=== PATIENT | male | born 1980 | race Caucasian/White ===

== ENCOUNTER 2022-10-06 11:31 | Inpatient (IN) | payer OTHER ==
[2022-10-06 12:01] VITALS: BMI 27.7
[2022-10-06] MEDS ORDERED: BENZOCAINE/MENTHOL (CHLORASEPTIC ) LOZENGE MM PRN (12:31)
[2022-10-06] MEDS ORDERED: POLYETHYLENE GLYCOL (HEALTHYLAX) 3350 17 GM PACKET PO PRN (12:31)
[2022-10-06] MEDS ORDERED: P-EPHED 60MG/TRIPROLIDI 2.5MG TABLET PO PRN (12:31)
[2022-10-06] MEDS ORDERED: BENZONATATE 200 MG CAPSULE PO PRN (12:31)
[2022-10-06] MEDS ORDERED: COLLOIDAL OATMEAL 1 BAR EACH TP PRN (12:31)
[2022-10-06] MEDS ORDERED: LOPERAMIDE HCL 2 MG CAPSULE PO PRN (12:31)
[2022-10-06] MEDS ORDERED: AMMONIUM LACTATE 12% LOTION 225 GM BOTTLE TP PRN (12:31)
[2022-10-06] MEDS ORDERED: MAG HYDROX/AL HYDROX/SIMETH 30 ML UNIT-DOSE CUP PO PRN (12:31)
[2022-10-06] MEDS ORDERED: NALOXONE HCL 0.4 MG/ML VIAL IM PRN (12:31)
[2022-10-06] MEDS ORDERED: IBUPROFEN 400 MG TABLET (FP) PO PRN (12:31)
[2022-10-06] MEDS ORDERED: TUBERCULIN PPD 5 TU/0.1ML SYRINGE (IN PATIENT USE ONLY) ID ONE (12:31)
[2022-10-06] MEDS ORDERED: IBUPROFEN 600 MG TABLET (FP) PO PRN (12:31)
[2022-10-06] MEDS ORDERED: guaiFENesin 600 MG TABLET.ER (FP) PO PRN (12:31)
[2022-10-06] MEDS ORDERED: NALOXONE HCL (KLOXXADO) 8 MG SPRAY NS PRN (12:31)
[2022-10-06] MEDS ORDERED: hydrOXYzine PAMOATE 25 MG CAPSULE (FP) PO PRN (12:31)
[2022-10-06] MEDS ORDERED: NICOTINE 14 MG/24 HOURS TOPICAL PATCH TD ONE (13:16)
[2022-10-06] MEDS: NICOTINE 14 MG/24 HOURS TOPICAL PATCH TD SCH (13:19)
[2022-10-06] MEDS: THIAMINE HCL 100 MG TABLET (FP) PO SCH (21:55)
[2022-10-06] MEDS: MELATONIN 5 MG TABLETS PO SCH (21:56)
[2022-10-06] MEDS: SULFAMETHOXAZOLE/TRIMETHOPRIM 800MG/160MG D.S. TABLET PO SCH (21:56)
[2022-10-07] MEDS ORDERED: methaDONE HCL 10 MG TABLET PO SCH (06:15)
[2022-10-07] MEDS: methaDONE 40 MG, methaDONE 20 MG PO SCH (06:18)
[2022-10-07] MEDS: SERTRALINE HCL 50 MG TABLET (FP) PO SCH (10:26)
[2022-10-07] MEDS: NICOTINE 14 MG/24 HOURS TOPICAL PATCH TD SCH (10:26)
[2022-10-07] MEDS: GABAPENTIN 100 MG CAPSULE PO SCH ×2 (10:26→21:33)
[2022-10-07] MEDS: PRENATAL VITAMINS W/ FOLIC ACID TABLET (FP) PO SCH (10:27)
[2022-10-07] MEDS: SULFAMETHOXAZOLE/TRIMETHOPRIM 800MG/160MG D.S. TABLET PO SCH ×2 (10:27→21:33)
[2022-10-07 11:23] LABS: PH,URINE 7.5 (5.0-8.0); URINE APPEARANCE CLEAR; URINE BILIRUBIN NEGATIVE (NEGATIVE); URINE COLOR YELLOW; URINE GLUCOSE (UA) NEGATIVE (NEGATIVE); URINE KETONE NEGATIVE (NEGATIVE); URINE LEUK ESTERASE NEGATIVE (NEGATIVE); URINE NITRITE NEGATIVE (NEGATIVE); URINE PROTEIN NEGATIVE (NEGATIVE); URINE UROBILINOGEN 0.2 mg/dL (0.2-1.0)
[2022-10-07 11:35] LABS: HEMATOCRIT 35.8 % (35.4-49); HEMOGLOBIN 11.9 GM/dL (11.7-16.9); MCH 27.2 pg (25.7-33.7); MCHC 33.4 g/dl (32.0-35.9); MEAN CELL VOLUME 81.4 fl (80-96); MEAN PLT VOLUME 7.7 fl (7.5-11.1); PLATELET COUNT 232 10^3/uL (134-434); RDW 14.9 % (11.9-15.9)
[2022-10-07 12:36] LABS: POTASSIUM 4.6 mmol/L (3.5-5.1)
[2022-10-07 12:51] LABS: ALBUMIN 3.4 g/dl (3.4-5.0); BLOOD UREA NITROGEN 6.9 mg/dL (7-18)
[2022-10-07 12:53] LABS: CREATININE 0.9 mg/dL (0.55-1.3)
[2022-10-07 12:54] LABS: BILIRUBIN,TOTAL 0.2 mg/dL (0.2-1); TOT PROT 6.6 g/dl (6.4-8.2)
[2022-10-07] MEDS: THIAMINE HCL 100 MG TABLET (FP) PO SCH (21:33)
[2022-10-07] MEDS: MELATONIN 5 MG TABLETS PO SCH (21:33)
[2022-10-07] MEDS: QUEtiapine FUMARATE 50 MG TABLET PO SCH (21:34)
[2022-10-08] MEDS: methaDONE 40 MG, methaDONE 20 MG PO SCH (06:18)
[2022-10-08] MEDS: PRENATAL VITAMINS W/ FOLIC ACID TABLET (FP) PO SCH (09:51)
[2022-10-08] MEDS: GABAPENTIN 100 MG CAPSULE PO SCH (09:51)
[2022-10-08] MEDS: NICOTINE 14 MG/24 HOURS TOPICAL PATCH TD SCH (09:51)
[2022-10-08] MEDS: SERTRALINE HCL 50 MG TABLET (FP) PO SCH (09:51)
[2022-10-08] MEDS: SULFAMETHOXAZOLE/TRIMETHOPRIM 800MG/160MG D.S. TABLET PO SCH ×2 (09:51→21:35)
[2022-10-08] MEDS: QUEtiapine FUMARATE 50 MG TABLET PO SCH (21:35)
[2022-10-08] MEDS: THIAMINE HCL 100 MG TABLET (FP) PO SCH (21:35)
[2022-10-08] MEDS: MELATONIN 5 MG TABLETS PO SCH (21:35)
[2022-10-08] MEDS: GABAPENTIN 300 MG CAPSULE PO SCH (21:36)
[2022-10-09] MEDS: methaDONE 40 MG, methaDONE 20 MG PO SCH (06:41)
[2022-10-09] MEDS: PRENATAL VITAMINS W/ FOLIC ACID TABLET (FP) PO SCH (09:58)
[2022-10-09] MEDS: NICOTINE 14 MG/24 HOURS TOPICAL PATCH TD SCH (09:58)
[2022-10-09] MEDS: SULFAMETHOXAZOLE/TRIMETHOPRIM 800MG/160MG D.S. TABLET PO SCH ×2 (09:58→21:20)
[2022-10-09] MEDS: SERTRALINE HCL 50 MG TABLET (FP) PO SCH (09:58)
[2022-10-09] MEDS: GABAPENTIN 300 MG CAPSULE PO SCH ×2 (09:58→21:20)
[2022-10-09] MEDS: NICOTINE POLACRILEX 2 MG GUM BUC PRN (10:00)
[2022-10-09] MEDS: MELATONIN 5 MG TABLETS PO SCH (21:20)
[2022-10-09] MEDS: QUEtiapine FUMARATE 50 MG TABLET PO SCH (21:20)
[2022-10-09] MEDS: THIAMINE HCL 100 MG TABLET (FP) PO SCH (21:20)
[2022-10-10] MEDS: methaDONE 40 MG, methaDONE 20 MG PO SCH (06:29)
[2022-10-10] MEDS: NICOTINE 14 MG/24 HOURS TOPICAL PATCH TD SCH (10:03)
[2022-10-10] MEDS: GABAPENTIN 300 MG CAPSULE PO SCH ×2 (10:03→21:13)
[2022-10-10] MEDS: PRENATAL VITAMINS W/ FOLIC ACID TABLET (FP) PO SCH (10:03)
[2022-10-10] MEDS: SULFAMETHOXAZOLE/TRIMETHOPRIM 800MG/160MG D.S. TABLET PO SCH ×2 (10:03→21:13)
[2022-10-10] MEDS: SERTRALINE HCL 50 MG TABLET (FP) PO SCH (10:04)
[2022-10-10] MEDS: QUEtiapine FUMARATE 50 MG TABLET PO SCH (21:13)
[2022-10-10] MEDS: THIAMINE HCL 100 MG TABLET (FP) PO SCH (21:13)
[2022-10-10] MEDS: MELATONIN 5 MG TABLETS PO SCH (21:13)
[2022-10-11] MEDS: methaDONE 40 MG, methaDONE 20 MG PO SCH (06:19)
[2022-10-11] MEDS: SULFAMETHOXAZOLE/TRIMETHOPRIM 800MG/160MG D.S. TABLET PO SCH ×2 (09:30→21:23)
[2022-10-11] MEDS: PRENATAL VITAMINS W/ FOLIC ACID TABLET (FP) PO SCH (09:31)
[2022-10-11] MEDS: GABAPENTIN 300 MG CAPSULE PO SCH ×2 (09:31→21:23)
[2022-10-11] MEDS: NICOTINE 14 MG/24 HOURS TOPICAL PATCH TD SCH (09:31)
[2022-10-11] MEDS: SERTRALINE HCL 50 MG TABLET (FP) PO SCH (09:31)
[2022-10-11] MEDS: NICOTINE POLACRILEX 2 MG GUM BUC PRN ×2 (09:32→21:24)
[2022-10-11] MEDS ORDERED: QUEtiapine FUMARATE 25 MG TABLET ONE (18:26)
[2022-10-11] MEDS: MELATONIN 5 MG TABLETS PO SCH (21:23)
[2022-10-11] MEDS: THIAMINE HCL 100 MG TABLET (FP) PO SCH (21:23)
[2022-10-11] MEDS: QUEtiapine FUMARATE 50 MG TABLET PO SCH (21:24)
[2022-10-12] MEDS: methaDONE 40 MG, methaDONE 20 MG PO SCH (06:36)
[2022-10-12] MEDS: SULFAMETHOXAZOLE/TRIMETHOPRIM 800MG/160MG D.S. TABLET PO SCH ×2 (10:20→21:28)
[2022-10-12] MEDS: NICOTINE 14 MG/24 HOURS TOPICAL PATCH TD SCH (10:20)
[2022-10-12] MEDS: PRENATAL VITAMINS W/ FOLIC ACID TABLET (FP) PO SCH (10:20)
[2022-10-12] MEDS: SERTRALINE HCL 50 MG TABLET (FP) PO SCH (10:20)
[2022-10-12] MEDS: GABAPENTIN 300 MG CAPSULE PO SCH ×2 (10:20→21:28)
[2022-10-12] MEDS: THIAMINE HCL 100 MG TABLET (FP) PO SCH (21:28)
[2022-10-12] MEDS: MELATONIN 5 MG TABLETS PO SCH (21:28)
[2022-10-12] MEDS: QUEtiapine FUMARATE 50 MG TABLET PO SCH (21:28)
[2022-10-13] MEDS: methaDONE 40 MG, methaDONE 20 MG PO SCH (06:14)
[2022-10-13] MEDS: GABAPENTIN 300 MG CAPSULE PO SCH ×2 (09:36→21:44)
[2022-10-13] MEDS: SULFAMETHOXAZOLE/TRIMETHOPRIM 800MG/160MG D.S. TABLET PO SCH (09:36)
[2022-10-13] MEDS: PRENATAL VITAMINS W/ FOLIC ACID TABLET (FP) PO SCH (09:36)
[2022-10-13] MEDS: SERTRALINE HCL 50 MG TABLET (FP) PO SCH (09:36)
[2022-10-13] MEDS: NICOTINE 14 MG/24 HOURS TOPICAL PATCH TD SCH (09:36)
[2022-10-13] MEDS: MAGNESIUM HYDROX 2400MG/30ML ORAL SUSPENSION 30 ML CUP PO PRN (09:38)
[2022-10-13] MEDS: ACETAMINOPHEN 325 MG TABLET (FP) PO PRN (19:52)
[2022-10-13] MEDS: THIAMINE HCL 100 MG TABLET (FP) PO SCH (21:44)
[2022-10-13] MEDS: MELATONIN 5 MG TABLETS PO SCH (21:44)
[2022-10-13] MEDS: QUEtiapine FUMARATE 50 MG TABLET PO SCH (21:44)
[2022-10-14] MEDS: methaDONE 40 MG, methaDONE 20 MG PO SCH (06:32)
[2022-10-14] MEDS ORDERED: methaDONE HCL 10 MG TABLET PO SCH (10:00)
[2022-10-14] MEDS: GABAPENTIN 300 MG CAPSULE PO SCH ×2 (10:09→21:23)
[2022-10-14] MEDS: PRENATAL VITAMINS W/ FOLIC ACID TABLET (FP) PO SCH (10:09)
[2022-10-14] MEDS: SERTRALINE HCL 50 MG TABLET (FP) PO SCH (10:09)
[2022-10-14] MEDS: NICOTINE 14 MG/24 HOURS TOPICAL PATCH TD SCH (10:09)
[2022-10-14] MEDS: NICOTINE POLACRILEX 2 MG GUM BUC PRN ×2 (10:11→21:24)
[2022-10-14] MEDS: MELATONIN 5 MG TABLETS PO SCH (21:22)
[2022-10-14] MEDS: THIAMINE HCL 100 MG TABLET (FP) PO SCH (21:22)
[2022-10-14] MEDS: QUEtiapine FUMARATE 100 MG TABLET (FP) PO SCH (21:24)
[2022-10-15] MEDS ORDERED: methaDONE HCL 10 MG TABLET PO SCH (06:00)
[2022-10-15] MEDS: methaDONE 40 MG, methaDONE 20 MG PO SCH (06:24)
[2022-10-15] MEDS: GABAPENTIN 300 MG CAPSULE PO SCH ×2 (09:37→21:25)
[2022-10-15] MEDS: NICOTINE 14 MG/24 HOURS TOPICAL PATCH TD SCH (09:38)
[2022-10-15] MEDS: PRENATAL VITAMINS W/ FOLIC ACID TABLET (FP) PO SCH (09:38)
[2022-10-15] MEDS: SERTRALINE HCL 50 MG TABLET (FP) PO SCH (09:38)
[2022-10-15] MEDS: NICOTINE POLACRILEX 2 MG GUM BUC PRN (21:25)
[2022-10-15] MEDS: THIAMINE HCL 100 MG TABLET (FP) PO SCH (21:25)
[2022-10-15] MEDS: QUEtiapine FUMARATE 100 MG TABLET (FP) PO SCH (21:25)
[2022-10-15] MEDS: MELATONIN 5 MG TABLETS PO SCH (21:25)
[2022-10-16] MEDS: methaDONE 40 MG, methaDONE 20 MG PO SCH (06:39)
[2022-10-16] MEDS: PRENATAL VITAMINS W/ FOLIC ACID TABLET (FP) PO SCH (10:09)
[2022-10-16] MEDS: SERTRALINE HCL 50 MG TABLET (FP) PO SCH (10:09)
[2022-10-16] MEDS: NICOTINE 14 MG/24 HOURS TOPICAL PATCH TD SCH (10:09)
[2022-10-16] MEDS: GABAPENTIN 300 MG CAPSULE PO SCH ×2 (10:09→21:26)
[2022-10-16] MEDS: NICOTINE POLACRILEX 2 MG GUM BUC PRN (10:11)
[2022-10-16] MEDS: QUEtiapine FUMARATE 100 MG TABLET (FP) PO SCH (21:26)
[2022-10-16] MEDS: MELATONIN 5 MG TABLETS PO SCH (21:26)
[2022-10-16] MEDS: THIAMINE HCL 100 MG TABLET (FP) PO SCH (21:26)
[2022-10-16] MEDS: ACETAMINOPHEN 325 MG TABLET (FP) PO PRN (21:27)
[2022-10-17] MEDS: methaDONE 40 MG, methaDONE 20 MG PO SCH (06:30)
[2022-10-17] MEDS: GABAPENTIN 300 MG CAPSULE PO SCH ×2 (09:32→21:30)
[2022-10-17] MEDS: SERTRALINE HCL 50 MG TABLET (FP) PO SCH (09:32)
[2022-10-17] MEDS: NICOTINE 14 MG/24 HOURS TOPICAL PATCH TD SCH (09:32)
[2022-10-17] MEDS: PRENATAL VITAMINS W/ FOLIC ACID TABLET (FP) PO SCH (09:32)
[2022-10-17] MEDS: NICOTINE POLACRILEX 2 MG GUM BUC PRN ×3 (09:33→21:31)
[2022-10-17] MEDS: QUEtiapine FUMARATE 100 MG TABLET (FP) PO SCH (21:30)
[2022-10-17] MEDS: THIAMINE HCL 100 MG TABLET (FP) PO SCH (21:30)
[2022-10-17] MEDS: MELATONIN 5 MG TABLETS PO SCH (21:30)
[2022-10-18] MEDS: methaDONE 40 MG, methaDONE 20 MG PO SCH (06:21)
[2022-10-18] MEDS: NICOTINE POLACRILEX 2 MG GUM BUC PRN ×2 (08:31→21:39)
[2022-10-18] MEDS: PRENATAL VITAMINS W/ FOLIC ACID TABLET (FP) PO SCH (10:09)
[2022-10-18] MEDS: GABAPENTIN 300 MG CAPSULE PO SCH ×2 (10:09→21:37)
[2022-10-18] MEDS: SERTRALINE HCL 50 MG TABLET (FP) PO SCH (10:09)
[2022-10-18] MEDS: NICOTINE 14 MG/24 HOURS TOPICAL PATCH TD SCH (10:09)
[2022-10-18] MEDS: QUEtiapine FUMARATE 100 MG TABLET (FP) PO SCH (21:37)
[2022-10-18] MEDS: MELATONIN 5 MG TABLETS PO SCH (21:37)
[2022-10-18] MEDS: THIAMINE HCL 100 MG TABLET (FP) PO SCH (21:37)
[2022-10-19] MEDS: methaDONE 40 MG, methaDONE 20 MG PO SCH (06:27)
[2022-10-19] MEDS: GABAPENTIN 300 MG CAPSULE PO SCH ×2 (09:02→21:22)
[2022-10-19] MEDS: SERTRALINE HCL 50 MG TABLET (FP) PO SCH (09:02)
[2022-10-19] MEDS: PRENATAL VITAMINS W/ FOLIC ACID TABLET (FP) PO SCH (09:02)
[2022-10-19] MEDS: NICOTINE 14 MG/24 HOURS TOPICAL PATCH TD SCH (09:02)
[2022-10-19] MEDS: NICOTINE POLACRILEX 2 MG GUM BUC PRN ×2 (09:03→21:23)
[2022-10-19] MEDS: MELATONIN 5 MG TABLETS PO SCH (21:22)
[2022-10-19] MEDS: QUEtiapine FUMARATE 100 MG TABLET (FP) PO SCH (21:22)
[2022-10-19] MEDS: THIAMINE HCL 100 MG TABLET (FP) PO SCH (21:22)
[2022-10-20] MEDS: methaDONE 40 MG, methaDONE 20 MG PO SCH (06:15)
[2022-10-20] MEDS: PRENATAL VITAMINS W/ FOLIC ACID TABLET (FP) PO SCH (10:18)
[2022-10-20] MEDS: NICOTINE 14 MG/24 HOURS TOPICAL PATCH TD SCH (10:18)
[2022-10-20] MEDS: GABAPENTIN 300 MG CAPSULE PO SCH ×2 (10:18→21:27)
[2022-10-20] MEDS: SERTRALINE HCL 50 MG TABLET (FP) PO SCH (10:18)
[2022-10-20] MEDS: MELATONIN 5 MG TABLETS PO SCH (21:26)
[2022-10-20] MEDS: NICOTINE POLACRILEX 2 MG GUM BUC PRN (21:27)
[2022-10-20] MEDS: THIAMINE HCL 100 MG TABLET (FP) PO SCH (21:27)
[2022-10-20] MEDS: QUEtiapine FUMARATE 100 MG TABLET (FP) PO SCH (21:27)
[2022-10-21] MEDS: methaDONE 40 MG, methaDONE 20 MG PO SCH (06:23)
[2022-10-21] MEDS: MAGNESIUM HYDROX 2400MG/30ML ORAL SUSPENSION 30 ML CUP PO PRN (09:48)
[2022-10-21] MEDS: GABAPENTIN 300 MG CAPSULE PO SCH ×2 (09:48→21:27)
[2022-10-21] MEDS: PRENATAL VITAMINS W/ FOLIC ACID TABLET (FP) PO SCH (09:48)
[2022-10-21] MEDS: NICOTINE 14 MG/24 HOURS TOPICAL PATCH TD SCH (09:48)
[2022-10-21] MEDS: SERTRALINE HCL 50 MG TABLET (FP) PO SCH (09:48)
[2022-10-21] MEDS: ACETAMINOPHEN 325 MG TABLET (FP) PO PRN (17:13)
[2022-10-21] MEDS: NICOTINE POLACRILEX 2 MG GUM BUC PRN (21:27)
[2022-10-21] MEDS: THIAMINE HCL 100 MG TABLET (FP) PO SCH (21:27)
[2022-10-21] MEDS: QUEtiapine FUMARATE 100 MG TABLET (FP) PO SCH (21:27)
[2022-10-21] MEDS: MELATONIN 5 MG TABLETS PO SCH (21:27)
[2022-10-22] MEDS: methaDONE 40 MG, methaDONE 20 MG PO SCH (06:25)
[2022-10-22] MEDS: SERTRALINE HCL 50 MG TABLET (FP) PO SCH (10:01)
[2022-10-22] MEDS: GABAPENTIN 300 MG CAPSULE PO SCH ×2 (10:01→21:19)
[2022-10-22] MEDS: NICOTINE 14 MG/24 HOURS TOPICAL PATCH TD SCH (10:01)
[2022-10-22] MEDS: PRENATAL VITAMINS W/ FOLIC ACID TABLET (FP) PO SCH (10:01)
[2022-10-22] MEDS: NICOTINE POLACRILEX 2 MG GUM BUC PRN (10:02)
[2022-10-22] MEDS: TOLNAFTATE 1% CREAM 15 GM TUBE TP SCH ×2 (13:48→21:20)
[2022-10-22] MEDS: THIAMINE HCL 100 MG TABLET (FP) PO SCH (21:19)
[2022-10-22] MEDS: QUEtiapine FUMARATE 100 MG TABLET (FP) PO SCH (21:19)
[2022-10-22] MEDS: MELATONIN 5 MG TABLETS PO SCH (21:19)
[2022-10-23] MEDS: methaDONE 40 MG, methaDONE 20 MG PO SCH (06:15)
[2022-10-23] MEDS: PRENATAL VITAMINS W/ FOLIC ACID TABLET (FP) PO SCH (10:00)
[2022-10-23] MEDS: NICOTINE 14 MG/24 HOURS TOPICAL PATCH TD SCH (10:00)
[2022-10-23] MEDS: SERTRALINE HCL 50 MG TABLET (FP) PO SCH (10:00)
[2022-10-23] MEDS: GABAPENTIN 300 MG CAPSULE PO SCH ×2 (10:00→21:14)
[2022-10-23] MEDS: TOLNAFTATE 1% CREAM 15 GM TUBE TP SCH ×2 (10:01→21:15)
[2022-10-23] MEDS: QUEtiapine FUMARATE 100 MG TABLET (FP) PO SCH (21:14)
[2022-10-23] MEDS: THIAMINE HCL 100 MG TABLET (FP) PO SCH (21:14)
[2022-10-23] MEDS: MELATONIN 5 MG TABLETS PO SCH (21:14)
[2022-10-23] MEDS: NICOTINE POLACRILEX 2 MG GUM BUC PRN (21:15)
[2022-10-24] MEDS: methaDONE 40 MG, methaDONE 20 MG PO SCH (06:33)
[2022-10-24] MEDS: NICOTINE POLACRILEX 2 MG GUM BUC PRN (08:45)
[2022-10-24] MEDS: GABAPENTIN 300 MG CAPSULE PO SCH ×2 (09:42→21:18)
[2022-10-24] MEDS: PRENATAL VITAMINS W/ FOLIC ACID TABLET (FP) PO SCH (09:43)
[2022-10-24] MEDS: NICOTINE 14 MG/24 HOURS TOPICAL PATCH TD SCH (09:43)
[2022-10-24] MEDS: TOLNAFTATE 1% CREAM 15 GM TUBE TP SCH ×2 (09:43→21:19)
[2022-10-24] MEDS: SERTRALINE HCL 50 MG TABLET (FP) PO SCH (09:44)
[2022-10-24] MEDS: THIAMINE HCL 100 MG TABLET (FP) PO SCH (21:18)
[2022-10-24] MEDS: QUEtiapine FUMARATE 100 MG TABLET (FP) PO SCH (21:18)
[2022-10-24] MEDS: MELATONIN 5 MG TABLETS PO SCH (21:18)
[2022-10-25] MEDS: methaDONE 40 MG, methaDONE 20 MG PO SCH (06:38)
[2022-10-25] MEDS: NICOTINE 14 MG/24 HOURS TOPICAL PATCH TD SCH (09:43)
[2022-10-25] MEDS: GABAPENTIN 300 MG CAPSULE PO SCH ×2 (09:43→21:23)
[2022-10-25] MEDS: PRENATAL VITAMINS W/ FOLIC ACID TABLET (FP) PO SCH (09:44)
[2022-10-25] MEDS: TOLNAFTATE 1% CREAM 15 GM TUBE TP SCH ×2 (09:44→21:24)
[2022-10-25] MEDS: SERTRALINE HCL 50 MG TABLET (FP) PO SCH (09:45)
[2022-10-25] MEDS: NICOTINE POLACRILEX 2 MG GUM BUC PRN ×4 (09:45→21:24)
[2022-10-25] MEDS: QUEtiapine FUMARATE 100 MG TABLET (FP) PO SCH (21:23)
[2022-10-25] MEDS: THIAMINE HCL 100 MG TABLET (FP) PO SCH (21:23)
[2022-10-25] MEDS: MELATONIN 5 MG TABLETS PO SCH (21:23)
[2022-10-26] MEDS: methaDONE 40 MG, methaDONE 20 MG PO SCH (06:32)
[2022-10-26] MEDS: NICOTINE POLACRILEX 2 MG GUM BUC PRN ×4 (06:33→14:13)
[2022-10-26] MEDS: PRENATAL VITAMINS W/ FOLIC ACID TABLET (FP) PO SCH (09:30)
[2022-10-26] MEDS: TOLNAFTATE 1% CREAM 15 GM TUBE TP SCH ×2 (09:30→21:31)
[2022-10-26] MEDS: SERTRALINE HCL 50 MG TABLET (FP) PO SCH (09:30)
[2022-10-26] MEDS: GABAPENTIN 300 MG CAPSULE PO SCH ×2 (09:30→21:30)
[2022-10-26] MEDS: NICOTINE 14 MG/24 HOURS TOPICAL PATCH TD SCH (09:30)
[2022-10-26] MEDS: ACETAMINOPHEN 325 MG TABLET (FP) PO PRN ×2 (15:35→21:29)
[2022-10-26] MEDS: QUEtiapine FUMARATE 100 MG TABLET (FP) PO SCH (21:30)
[2022-10-26] MEDS: MELATONIN 5 MG TABLETS PO SCH (21:30)
[2022-10-26] MEDS: THIAMINE HCL 100 MG TABLET (FP) PO SCH (21:31)
[2022-10-27] MEDS: methaDONE 40 MG, methaDONE 20 MG PO SCH (06:28)
[2022-10-27] MEDS: NICOTINE POLACRILEX 2 MG GUM BUC PRN ×2 (06:29→09:43)
[2022-10-27] MEDS: NICOTINE 14 MG/24 HOURS TOPICAL PATCH TD SCH (09:41)
[2022-10-27] MEDS: GABAPENTIN 300 MG CAPSULE PO SCH ×2 (09:41→21:38)
[2022-10-27] MEDS: SERTRALINE HCL 50 MG TABLET (FP) PO SCH (09:42)
[2022-10-27] MEDS: TOLNAFTATE 1% CREAM 15 GM TUBE TP SCH ×2 (09:42→22:33)
[2022-10-27] MEDS: PRENATAL VITAMINS W/ FOLIC ACID TABLET (FP) PO SCH (09:42)
[2022-10-27] MEDS: QUEtiapine FUMARATE 100 MG TABLET (FP) PO SCH (21:38)
[2022-10-27] MEDS: THIAMINE HCL 100 MG TABLET (FP) PO SCH (21:38)
[2022-10-27] MEDS: MELATONIN 5 MG TABLETS PO SCH (21:38)
[2022-10-28] MEDS: methaDONE 40 MG, methaDONE 20 MG PO SCH (06:37)
[2022-10-28] MEDS: NICOTINE POLACRILEX 2 MG GUM BUC PRN ×5 (06:39→21:17)
[2022-10-28 06:46] VITALS: RESP 16
[2022-10-28] MEDS: TOLNAFTATE 1% CREAM 15 GM TUBE TP SCH ×2 (09:34→21:16)
[2022-10-28] MEDS: NICOTINE 14 MG/24 HOURS TOPICAL PATCH TD SCH (09:35)
[2022-10-28] MEDS: GABAPENTIN 300 MG CAPSULE PO SCH ×2 (09:35→21:15)
[2022-10-28] MEDS: PRENATAL VITAMINS W/ FOLIC ACID TABLET (FP) PO SCH (09:35)
[2022-10-28] MEDS: SERTRALINE HCL 50 MG TABLET (FP) PO SCH (09:35)
[2022-10-28] MEDS: MELATONIN 5 MG TABLETS PO SCH (21:15)
[2022-10-28] MEDS: QUEtiapine FUMARATE 100 MG TABLET (FP) PO SCH (21:15)
[2022-10-28] MEDS: THIAMINE HCL 100 MG TABLET (FP) PO SCH (21:15)
[2022-10-29] MEDS: methaDONE 40 MG, methaDONE 20 MG PO SCH (06:03)
[2022-10-29] MEDS: NICOTINE POLACRILEX 2 MG GUM BUC PRN ×2 (06:04→09:26)
[2022-10-29 06:31] VITALS: BP 116/74; PULSE 60; TEMP 97.2
[2022-10-29] MEDS: SERTRALINE HCL 50 MG TABLET (FP) PO SCH (09:25)
[2022-10-29] MEDS: TOLNAFTATE 1% CREAM 15 GM TUBE TP SCH (09:25)
[2022-10-29] MEDS: GABAPENTIN 300 MG CAPSULE PO SCH (09:25)
[2022-10-29] MEDS: NICOTINE 14 MG/24 HOURS TOPICAL PATCH TD SCH (09:25)
[2022-10-29] MEDS: PRENATAL VITAMINS W/ FOLIC ACID TABLET (FP) PO SCH (09:26)
== END 2022-10-29 09:30 | disposition home or self-care (01) | DRG 772 ==
LOC: YASAS 11:31 → Y3E 13:15
PROVIDERS: ADMIT Allergy & Immunology; ATTEND Psychiatry & Neurology Pain Medicine
PROC: HZ42ZZZ Group Counseling for Substance Abuse Treatment, Cognitive-Behavioral (ICD-10-PCS; principal; 2022-10-06)
DX: F11.20 Opioid dependence, uncomplicated (principal); F14.20 Cocaine dependence, uncomplicated; F17.210 Nicotine dependence, cigarettes, uncomplicated; F19.24 Other psychoactive substance dependence with psychoactive substance-induced mood disorder; F31.9 Bipolar disorder, unspecified; F41.9 Anxiety disorder, unspecified; B35.3 Tinea pedis; Z86.19 Personal history of other infectious and parasitic diseases
CPT/HCPCS: 36415; 80053; 81003; 82962; 85027; 86780; 87635

== ENCOUNTER 2023-12-21 11:04 | Inpatient (IN) | payer OTHER ==
[2023-12-21 11:33] VITALS: BMI 24.2
[2023-12-21] MEDS ORDERED: hydrOXYzine PAMOATE 25 MG CAPSULE (FP) PO PRN (11:46)
[2023-12-21] MEDS ORDERED: NALOXONE (NARCAN) HCL 4 MG/0.1 ML SPRAY NS PRN (11:46)
[2023-12-21] MEDS ORDERED: guaiFENesin 600 MG TABLET.ER (FP) PO PRN (11:46)
[2023-12-21] MEDS ORDERED: POLYETHYLENE GLYCOL (HEALTHYLAX) 3350 17 GM PACKET PO PRN (11:46)
[2023-12-21] MEDS ORDERED: IBUPROFEN 400 MG TABLET (FP) PO PRN (11:46)
[2023-12-21] MEDS ORDERED: MAG HYDROX/AL HYDROX/SIMETH 30 ML UNIT-DOSE CUP PO PRN (11:46)
[2023-12-21] MEDS ORDERED: LOPERAMIDE HCL 2 MG CAPSULE PO PRN (11:46)
[2023-12-21] MEDS ORDERED: BENZONATATE 200 MG CAPSULE PO PRN (11:46)
[2023-12-21] MEDS ORDERED: BENZOCAINE/MENTHOL (CHLORASEPTIC ) LOZENGE MM PRN (11:46)
[2023-12-21] MEDS: NALOXONE (NYS OPIOID OVERDOSE PROGRAM) 4 MG/0.1 ML SPRAY NS ONE (13:22)
[2023-12-21] MEDS: NICOTINE POLACRILEX 4 MG GUM BUC PRN (14:01)
[2023-12-21] MEDS: GABAPENTIN 100 MG CAPSULE PO SCH (15:11)
[2023-12-21] MEDS ORDERED: TUBERCULIN PPD 5 TU/0.1ML VIAL ID ONE (15:13)
[2023-12-21] MEDS: THIAMINE 100 MG TABLET PO SCH (21:41)
[2023-12-21] MEDS: MELATONIN 5 MG TABLETS PO SCH (21:41)
[2023-12-21] MEDS: QUEtiapine FUMARATE 50 MG TABLET PO SCH (21:41)
[2023-12-22] MEDS ORDERED: methaDONE HCL 10 MG TABLET PO SCH (06:00)
[2023-12-22] MEDS: SERTRALINE HCL 50 MG TABLET (FP) PO SCH (10:35)
[2023-12-22] MEDS: PRENATAL VITAMINS W/ FOLIC ACID TABLET (FP) PO SCH (10:35)
[2023-12-22 12:14] LABS: HEMATOCRIT 37.5 % (35.4-49); HEMOGLOBIN 12.4 GM/dL (11.7-16.9); MCH 28.5 pg (25.7-33.7); MEAN CELL VOLUME 86.4 fl (80-96); PLATELET COUNT 212 10^3/uL (134-434); RBC 4.34 M/mm3 (4.00-5.60); WHITE BLOOD COUNT 7.9 K/mm3 (4.0-10.0)
[2023-12-22 12:28] LABS: POTASSIUM 4.3 mmol/L (3.5-5.1)
[2023-12-22 12:31] LABS: ALBUMIN 3.3 g/dl (3.4-5.0); BLOOD UREA NITROGEN 13.4 mg/dL (7-18); CALCIUM 8.6 mg/dL (8.5-10.1)
[2023-12-22 12:34] LABS: CREATININE 0.8 mg/dL (0.55-1.3)
[2023-12-22 12:36] LABS: BILIRUBIN,TOTAL 0.2 mg/dL (0.2-1); TOT PROT 6.3 g/dl (6.4-8.2)
[2023-12-22 16:06] LABS: URINE APPEARANCE CLEAR; URINE BILIRUBIN NEGATIVE (NEGATIVE); URINE COLOR YELLOW; URINE GLUCOSE (UA) NEGATIVE (NEGATIVE); URINE KETONE NEGATIVE (NEGATIVE); URINE LEUK ESTERASE NEGATIVE (NEGATIVE); URINE NITRITE NEGATIVE (NEGATIVE); URINE PROTEIN NEGATIVE (NEGATIVE); URINE UROBILINOGEN 0.2 mg/dL (0.2-1.0)
[2023-12-23] MEDS: NICOTINE POLACRILEX 2 MG LOZENGE BC PRN (10:02)
[2023-12-24] MEDS: NALOXONE (NYS OPIOID OVERDOSE PROGRAM) 4 MG/0.1 ML SPRAY NS ONE (16:05)
[2023-12-28] MEDS: NICOTINE POLACRILEX 2 MG LOZENGE BC PRN (06:35)
[2023-12-28] MEDS: MAGNESIUM HYDROX 2400MG/30ML ORAL SUSPENSION 30 ML CUP PO PRN (09:45)
[2023-12-31] MEDS: ACETAMINOPHEN 325 MG TABLET (FP) PO PRN (17:03)
[2024-01-08] MEDS: GABAPENTIN 300 MG CAPSULE PO SCH (21:11)
[2024-01-09] MEDS: SERTRALINE HCL 50 MG TABLET (FP) PO SCH (10:10)
[2024-01-11 06:31] VITALS: RESP 16
[2024-01-12] MEDS: BACLOFEN 10 MG TABLET (FP) PO SCH (21:05)
[2024-01-12 23:14] LABS: HIV INTERPRETATION NEGATIVE (NEGATIVE)
[2024-01-15] MEDS: IBUPROFEN 600 MG TABLET (FP) PO PRN (14:42)
[2024-01-17 07:11] VITALS: PULSE 61
[2024-01-18 06:45] VITALS: BP 109/54; TEMP 97.3
[2024-01-18] MEDS: NALOXONE (NYS OPIOID OVERDOSE PROGRAM) 4 MG/0.1 ML SPRAY NS PRN (08:52)
== END 2024-01-18 09:53 | disposition home or self-care (01) | DRG 772 ==
LOC: YASAS 11:04 → Y3W 12:31
PROVIDERS: ADMIT Psychiatry & Neurology Pain Medicine; ATTEND Psychiatry & Neurology Pain Medicine
PROC: HZ42ZZZ Group Counseling for Substance Abuse Treatment, Cognitive-Behavioral (ICD-10-PCS; principal; 2023-12-21)
DX: F14.20 Cocaine dependence, uncomplicated (principal); F11.20 Opioid dependence, uncomplicated; F17.210 Nicotine dependence, cigarettes, uncomplicated; F19.282 Other psychoactive substance dependence with psychoactive substance-induced sleep disorder; F19.280 Other psychoactive substance dependence with psychoactive substance-induced anxiety disorder; F19.24 Other psychoactive substance dependence with psychoactive substance-induced mood disorder; F41.9 Anxiety disorder, unspecified; F32.A Depression, unspecified; Z86.19 Personal history of other infectious and parasitic diseases; Z86.59 Personal history of other mental and behavioral disorders; Z59.00 Homelessness unspecified
CPT/HCPCS: 36415; 80053; 80305; 80307; 81003; 85027; 86780; 87389; 87522; 87811; 93005; 93010; J0475

== ENCOUNTER 2024-03-09 12:18 | Inpatient (IN) | payer OTHER ==
[2024-03-09 12:46] VITALS: BMI 24.1
[2024-03-09] MEDS ORDERED: MAGNESIUM HYDROX 2400MG/30ML ORAL SUSPENSION 30 ML CUP PO PRN (13:08)
[2024-03-09] MEDS ORDERED: guaiFENesin 600 MG TABLET.ER (FP) PO PRN (13:08)
[2024-03-09] MEDS ORDERED: BENZONATATE 200 MG CAPSULE PO PRN (13:08)
[2024-03-09] MEDS ORDERED: POLYETHYLENE GLYCOL (HEALTHYLAX) 3350 17 GM PACKET PO PRN (13:08)
[2024-03-09] MEDS ORDERED: LOPERAMIDE HCL 2 MG CAPSULE PO PRN (13:08)
[2024-03-09] MEDS ORDERED: NALOXONE (NARCAN) HCL 4 MG/0.1 ML SPRAY NS PRN (13:08)
[2024-03-09] MEDS ORDERED: MAG HYDROX/AL HYDROX/SIMETH 30 ML UNIT-DOSE CUP PO PRN (13:08)
[2024-03-09] MEDS ORDERED: IBUPROFEN 400 MG TABLET (FP) PO PRN (13:08)
[2024-03-09] MEDS ORDERED: NICOTINE 14 MG/24 HOURS TOPICAL PATCH TD ONE (14:23)
[2024-03-09] MEDS ORDERED: PRENATAL VITAMINS W/ FOLIC ACID TABLET (FP) PO ONE (14:24)
[2024-03-09] MEDS: NICOTINE 14 MG/24 HOURS TOPICAL PATCH TD SCH (14:29)
[2024-03-09] MEDS: PRENATAL VITAMINS W/ FOLIC ACID TABLET (FP) PO SCH (14:30)
[2024-03-09] MEDS: MELATONIN 5 MG TABLETS PO SCH (21:44)
[2024-03-09] MEDS: THIAMINE 100 MG TABLET PO SCH (21:44)
[2024-03-09] MEDS: QUEtiapine FUMARATE 50 MG TABLET PO SCH (21:44)
[2024-03-10] MEDS ORDERED: methaDONE HCL 10 MG TABLET PO SCH (10:15)
[2024-03-10] MEDS: SERTRALINE HCL 25 MG TABLET (FP) PO SCH (10:30)
[2024-03-10 12:41] LABS: HEMATOCRIT 33.5 % (35.4-49); HEMOGLOBIN 11.1 GM/dL (11.7-16.9); MCH 28.3 pg (25.7-33.7); MCHC 33.2 g/dl (32.0-35.9); MEAN CELL VOLUME 85.4 fl (80-96); MEAN PLT VOLUME 7.4 fl (7.5-11.1); PLATELET COUNT 241 10^3/uL (134-434); RBC 3.93 M/mm3 (4.00-5.60); RDW 14.3 % (11.9-15.9); WHITE BLOOD COUNT 6.3 K/mm3 (4.0-10.0)
[2024-03-10 12:53] LABS: CHLORIDE 109 mmol/L (98-107); POTASSIUM 4.1 mmol/L (3.5-5.1); SODIUM 141 mmol/L (136-145)
[2024-03-10 13:02] LABS: GLUCOSE,RANDOM 87 mg/dL (74-106)
[2024-03-10 13:03] LABS: ALBUMIN 3.2 g/dl (3.4-5.0); ANION GAP 5 mmol/L (4-13); BLOOD UREA NITROGEN 10.9 mg/dL (7-18); CALCIUM 8.6 mg/dL (8.5-10.1); CO2 26 mmol/L (21-32)
[2024-03-10 13:06] LABS: CREATININE 0.8 mg/dL (0.55-1.3); SGPT/ALT 15 U/L (13-61)
[2024-03-10 13:07] LABS: SGOT/AST 14 U/L (15-37)
[2024-03-10 13:08] LABS: BILIRUBIN,TOTAL 0.1 mg/dL (0.2-1); TOT PROT 5.9 g/dl (6.4-8.2)
[2024-03-10 13:09] LABS: ALK PHOS 62 U/L (45-117)
[2024-03-10 13:17] LABS: SYPHILIS W/ RPR CONF NON-REACTIVE (NONREACTIVE)
[2024-03-11 01:53] LABS: PH,URINE 5.5 (5.0-8.0); URINE APPEARANCE CLEAR; URINE BILIRUBIN NEGATIVE (NEGATIVE); URINE COLOR YELLOW; URINE GLUCOSE (UA) NEGATIVE (NEGATIVE); URINE KETONE TRACE (NEGATIVE); URINE LEUK ESTERASE NEGATIVE (NEGATIVE); URINE NITRITE NEGATIVE (NEGATIVE); URINE PROTEIN NEGATIVE (NEGATIVE); URINE UROBILINOGEN 0.2 mg/dL (0.2-1.0)
[2024-03-11] MEDS: NICOTINE POLACRILEX 2 MG GUM BUC PRN (18:38)
[2024-03-12] MEDS: IBUPROFEN 600 MG TABLET (FP) PO PRN (09:14)
[2024-03-12] MEDS: NICOTINE POLACRILEX 2 MG LOZENGE BC PRN (17:42)
[2024-03-15] MEDS: SERTRALINE HCL 25 MG TABLET (FP) PO SCH (10:00)
[2024-03-15] MEDS: NICOTINE POLACRILEX 2 MG LOZENGE BC PRN (10:00)
[2024-03-15] MEDS: GABAPENTIN 300 MG CAPSULE PO SCH (13:52)
[2024-03-20] MEDS: SERTRALINE HCL 50 MG TABLET (FP) PO SCH (10:04)
[2024-03-21] MEDS: hydrOXYzine PAMOATE 25 MG CAPSULE (FP) PO PRN (05:30)
[2024-03-21] MEDS: BENZOCAINE/MENTHOL (CHLORASEPTIC ) LOZENGE MM PRN (17:59)
[2024-03-21] MEDS: ACETAMINOPHEN 325 MG TABLET (FP) PO PRN (18:01)
[2024-03-21] MEDS ORDERED: guaiFENesin 600 MG TABLET.ER (FP) PO PRN (19:46)
[2024-03-21] MEDS ORDERED: BENZONATATE 200 MG CAPSULE PO PRN (19:46)
[2024-03-21] MEDS ORDERED: P-EPHED 60MG/TRIPROLIDI 2.5MG TABLET PO PRN (19:47)
[2024-03-21] MEDS ORDERED: OXYMETAZOLINE 0.05% NASAL SOLUTION 15 ML BOTTLE NS PRN (19:47)
[2024-03-29] MEDS: SERTRALINE HCL 25 MG TABLET (FP) PO SCH (10:08)
[2024-03-31] MEDS: SERTRALINE HCL 50 MG TABLET (FP) PO SCH (09:49)
[2024-04-04 06:38] VITALS: PULSE 60
[2024-04-05 06:46] VITALS: BP 119/70; RESP 18; TEMP 97
[2024-04-05] MEDS: NALOXONE (NYS OPIOID OVERDOSE PROGRAM) 4 MG/0.1 ML SPRAY NS SCH (09:05)
== END 2024-04-05 09:18 | disposition home or self-care (01) | DRG 772 ==
LOC: YASAS 12:18 → Y3NR 14:57 → Y3E 03-11 12:57
PROVIDERS: ADMIT Allergy & Immunology; ATTEND Psychiatry & Neurology Pain Medicine
PROC: HZ42ZZZ Group Counseling for Substance Abuse Treatment, Cognitive-Behavioral (ICD-10-PCS; principal; 2024-03-09)
DX: F11.20 Opioid dependence, uncomplicated (principal); F14.20 Cocaine dependence, uncomplicated; F12.20 Cannabis dependence, uncomplicated; F17.210 Nicotine dependence, cigarettes, uncomplicated; F31.9 Bipolar disorder, unspecified; F19.282 Other psychoactive substance dependence with psychoactive substance-induced sleep disorder; F19.280 Other psychoactive substance dependence with psychoactive substance-induced anxiety disorder; F19.24 Other psychoactive substance dependence with psychoactive substance-induced mood disorder; Z86.59 Personal history of other mental and behavioral disorders; Z86.19 Personal history of other infectious and parasitic diseases; Z59.00 Homelessness unspecified
CPT/HCPCS: 0241U-QW; 36415; 80053; 80307; 81003; 85027; 86780; 86803; 87522; 93005; 93010